=== PATIENT | male | born 1965 | race Caucasian/White ===

== ENCOUNTER 2025-09-02 19:56 | Emergency (ER) | payer SELFPAY ==
[~2025-09-02] VITALS: Ht 177.8 cm; Wt 98.9 kg
[2025-09-02] MEDS ORDERED: Ketorolac Tromethamine 30mg Vial IM ONE (20:15)
[2025-09-02] MEDS ORDERED: PENVK500 PO (20:15)
== END 2025-09-02 20:21 | disposition home or self-care (01) ==
LOC: ER 19:56
DX: K04.7 Periapical abscess without sinus (principal); Z59.89 Other problems related to housing and economic circumstances; Z87.891 Personal history of nicotine dependence; Z88.2 Allergy status to sulfonamides; Z79.899 Other long term (current) drug therapy
CPT/HCPCS: 96372; 99282-25; A9270; J1885